=== PATIENT | male | born 1985 | race Caucasian/White ===

== ENCOUNTER 2018-05-24 13:04 | Emergency (ER) | payer SELFPAY ==
[2018-05-24 13:55] LABS: ABSOLUTE BASOPHILS # (AUTO) 0.1 10^3/uL (0.0-0.2); ABSOLUTE MONOCYTES (AUTO) 0.6 10^3/uL (0.1-1.4); ABSOLUTE NEUT (AUTO) 6.2 10^3/uL (1.7-8.2); BASOPHILS % (AUTO) 0.6 % (0-2); EOSINOPHILS % (AUTO) 0.1 % (0-6); HEMATOCRIT 39.5 % (37.9-51.0); HEMOGLOBIN 13.3 g/dL (13.5-17.0); LYMPHOCYTES % (AUTO) 22.3 % (13-45); MEAN CORPUSCULAR HEMOGLOBIN 30.2 pg (27.0-33.4); MEAN CORPUSCULAR HGB CONC 33.8 g/dL (32.0-36.0); MEAN CORPUSCULAR VOLUME 89 fl (80-97); PLATELET COUNT 496 10^3/uL (150-450); RED BLOOD COUNT 4.42 10^6/uL (4.35-5.55); TOTAL CELLS COUNTED % (AUTO) 100 %; WHITE BLOOD COUNT 8.9 10^3/uL (4.0-10.5)
[2018-05-24] MEDS ORDERED: ONDANSETRON HCL INJ/PF 4 MG/2 ML SDV IV ONE (14:39)
[2018-05-24] MEDS ORDERED: PANTOPRAZOLE SODIUM 40 MG VIAL IV ONE (14:39)
[2018-05-24] MEDS ORDERED: NORMAL SALINE 1000 ML 1,000 ML IV ONE (14:39)
[2018-05-24] MEDS ORDERED: MAG HYDROX/AL HYDROX/SIMETH SUSP 30 ML UDCUP PO ONE (14:44)
[2018-05-24] MEDS ORDERED: LIDOCAINE 2% VISCOUS SOLN 20 ML UDCUP PO ONE (14:44)
--- NOTE | 2018-05-24 14:44 | ER Document Report ---
ED GI Bleed / Rectal Pain - General Chief Complaint: GI Bleeding Stated Complaint: VOMITING Time Seen by Provider: 05/24/18 14:32 Mode of Arrival: Ambulatory Information source: Patient - HPI Patient complains to provider of: Coffee ground emesis Onset: This afternoon Timing/Duration: Sudden Quality of pain: Achy, Burning Severity of symptoms: Moderate Pain Level: 3 Associated symptoms: Abdominal pain Exacerbated by: Denies Relieved by: Denies Similar symptoms previously: Yes - 1 year ago Recently seen / treated by doctor: No Notes: Patient is a 33-year-old male presenting to the emergency room today complaining of epigastric abdominal pain with vomiting dark substance that appears to be coffee-ground emesis, he reports a history of similar symptoms approximately 1 year ago when he was taking NSAIDs for gout, since then he is only taking Tylenol but takes about 15 500 mg tabs on a daily basis, he drinks 1 -2 beers on a daily basis and smokes marijuana daily, he is also a smoker, denies any fevers, no diarrhea, no dark tarry stools, no urinary symptoms - Related Data Allergies/Adverse Reactions: hydrocodone Allergy (Verified 05/24/18 14:11) ibuprofen [From Motrin] Allergy (Verified 05/24/18 14:11) Past Medical History - General Information source: Patient - Social History Smoking Status: Current Every Day Smoker Family History: Reviewed & Not Pertinent Patient has suicidal ideation: No Patient has homicidal ideation: No Renal/ Medical History: Denies: Hx Peritoneal Dialysis GI Medical History: Reports: Hx Gastroesophageal Reflux Disease Past Surgical History: Reports: Hx Abdominal Surgery Review of Systems - Review of Systems Constitutional: No symptoms reported EENT: No symptoms reported Cardiovascular: No symptoms reported Respiratory: No symptoms reported Gastrointestinal: See HPI Genitourinary: No symptoms reported Male Genitourinary: No symptoms reported Musculoskeletal: No symptoms reported Skin: No symptoms reported Hematologic/Lymphatic: No symptoms reported Neurological/Psychological: No symptoms reported -: Yes All other systems reviewed and negative Physical Exam - Vital signs Vitals: Temp Pulse Resp BP Pulse Ox 98.4 F 86 20 137/79 H 96 05/24/18 13:10 05/24/18 13:10 05/24/18 13:10 05/24/18 13:10 05/24/18 13:10 Interpretation: Normal - General General appearance: Appears well, Alert - HEENT Head: Normocephalic, Atraumatic Eyes: Normal Pupils: PERRL - Respiratory Respiratory status: No respiratory distress Chest status: Nontender Breath sounds: Normal Chest palpation: Normal - Cardiovascular Rhythm: Regular Heart sounds: Normal auscultation Murmur: No - Abdominal Inspection: Normal Distension: No distension Bowel sounds: Normal Tenderness: Tender - Epigastric Organomegaly: No organomegaly - Back Back: Normal, Nontender - Extremities General upper extremity: Normal inspection, Nontender, Normal color, Normal ROM , Normal temperature General lower extremity: Normal inspection, Nontender, Normal color, Normal ROM , Normal temperature, Normal weight bearing. No: Brice's sign - Neurological Neuro grossly intact: Yes Cognition: Normal Orientation: AAOx4 Chamberlain Coma Scale Eye Opening: Spontaneous Adam Coma Scale Verbal: Oriented Adam Coma Scale Motor: Obeys Commands Chamberlain Coma Scale Total: 15 Speech: Normal Motor strength normal: LUE, RUE, LLE, RLE Sensory: Normal - Psychological Associated symptoms: Normal affect, Normal mood - Skin Skin Temperature: Warm Skin Moisture: Dry Skin Color: Normal Course - Re-evaluation Re-evalutation: 05/24/18 18:14 Patient sleeping comfortably, easily awakens, reports feeling much better, abdomen is soft and nontender, given his normal lab and vital signs, symptoms likely related to gastritis, he was advised to avoid all NSAIDs, alcohol call products or other foods that may irritate his stomach lining, advised to eat a brat diet for the next 2-3 days, follow-up with GI or return if symptoms worsen , patient acknowledges understanding and agreement with this plan - Vital Signs Vital signs: Temp Pulse Resp BP Pulse Ox 98.4 F 86 20 137/79 H 96 05/24/18 13:10 05/24/18 13:10 05/24/18 13:10 05/24/18 13:10 05/24/18 13:10 - Laboratory Result Diagrams: 05/24/18 12:52 05/24/18 14:30 Laboratory results interpreted by me: 05/24/18 05/24/18 05/24/18 12:52 14:30 15:44 Hgb 13.3 L Plt Count 496 H PT 16.1 H APTT 37.5 H ALT 19 L Acetaminophen < 10 L Discharge - Discharge Clinical Impression: Gastritis Condition: Stable Disposition: HOME, SELF-CARE Instructions: Gastritis ([facility]), Gastroenterology Additional Instructions: Follow up with your primary care provider in one to 2 days. Return to the emergency room immediately if symptoms worsen or any additional concerns. Maintain a brat diet for the next 24-48 hours, this consists of banana, rice, applesauce, toast. Prescriptions: Ondansetron HCl [Zofran 4 mg Tablet] 1 - 2 tab PO Q4H PRN #10 tablet PRN Reason: Oxycodone HCl 5 mg PO Q6 #10 capsule Pantoprazole Sodium [Protonix] 40 mg PO DAILY #30 tablet.
[2018-05-24 15:13] LABS: ALANINE AMINOTRANSFERASE 19 U/L (21-72); ALBUMIN 4.4 g/dL (3.5-5.0); ALKALINE PHOSPHATASE 74 U/L (38-126); ANION GAP 16 (5-19); ASPARTATE AMINO TRANSFERASE 36 U/L (17-59); BILIRUBIN,DIRECT 0.4 mg/dL (0.0-0.4); BILIRUBIN,TOTAL 0.8 mg/dL (0.2-1.3); BLOOD UREA NITROGEN 14 mg/dL (7-20); CALCIUM 9.9 mg/dL (8.4-10.2); CARBON DIOXIDE 27 mmol/L (22-30); CHLORIDE 99 mmol/L (98-107); GLUCOSE 80 mg/dL (75-110); LIPASE 51.2 U/L (23-300); POTASSIUM 4.4 mmol/L (3.6-5.0); SODIUM 141.8 mmol/L (137-145); TOTAL PROTEIN 8.1 g/dL (6.3-8.2)
[2018-05-24 15:16] LABS: ACETAMINOPHEN < 10 ug/mL (10-30)
[2018-05-24 16:01] LABS: INTERNATIONAL RATION (INR) 1.23; PROTHROMBIN TIME 16.1 SEC (11.4-15.4)
[2018-05-24 16:02] LABS: PARTIAL THROMBOPLASTIN TIME 37.5 SEC (23.5-35.8)
[2018-05-24] MEDS ORDERED: METOCLOPRAMIDE HCL INJ/PF 10 MG/2 ML SDV IV ONE (16:38)
[2018-05-24] MEDS ORDERED: MORPHINE SULFATE 10 MG/ML INJ IV ONE (16:38)
[2018-05-24 18:16] VITALS: BP 123/75
[2018-05-24 18:42] LABS: APPEARANCE,URINE CLEAR; BILIRUBIN,URINE NEGATIVE (NEGATIVE); COLOR,URINE YELLOW; GLUCOSE, URINE NEGATIVE (NEGATIVE); KETONES,URINE 20 mg/dL (NEGATIVE); LEUKOCYTE ESTERASE,URINE NEGATIVE (NEGATIVE); NITRITE,URINE NEGATIVE (NEGATIVE); PROTEIN,URINE NEGATIVE (NEGATIVE); URINE SPECIFIC GRAVITY 1.012; UROBILINOGEN,URINE NEGATIVE mg/dL (<2.0)
== END 2018-05-24 18:25 | disposition home or self-care (01) ==
LOC: ER 13:04
DX: K29.70 Gastritis, unspecified, without bleeding (principal); F17.200 Nicotine dependence, unspecified, uncomplicated; Z88.6 Allergy status to analgesic agent
CPT/HCPCS: 99285; 96361; 96374; 96375; 36415; 83690; 80307; 85025; 85610; 85730; 80053; 81001; 83605; J3490; J2765; J2270; S0164; J2405; J7030